=== PATIENT | male | born 1965 | race Caucasian/White ===

== ENCOUNTER 2020-05-22 12:07 | Emergency (ER) | payer OTHER ==
[~2020-05-22] VITALS: Ht 180.3 cm; Wt 83.9 kg
--- NOTE | 2020-05-22 12:20 | NUR ---
PT STATED HE HAS NOT HAD A BM IN 1 WEEK. PT STATES HE TRIED MAG CITRATE, MIRALAX AND SUPPOSITORIES. PT ALSO STATES THAT URINATION IS DIFFICULT NOW D/T CONSTIPATION.
--- NOTE | 2020-05-22 12:27 | NUR ---
MD AT BEDSIDE WITH PATIENT AT THIS TIME
[2020-05-22] MEDS ORDERED: NA PHOS,M-B/NA PHOS,DI-BA 1 EA ENEMA RC ONE ×2 (12:30→12:59)
[2020-05-22] MEDS ORDERED: MAGNESIUM CITRATE 296 ML BOTTLE PO ONE (12:30)
--- NOTE | 2020-05-22 12:52 | NUR ---
PT TAKEN TO CT BY B[employer]ING AND FINANCE INSTRUCTOR
[2020-05-22 12:54] LABS: BASOPHILS # (AUTO) 0.1 /CMM (0.0-0.2); BASOPHILS % (AUTO) 0.9 % (0.0-2.0); EOSINOPHILS % (AUTO) 1.4 % (0.0-6.0); HEMATOCRIT 36 % (39-51); LYMPHOCYTES % (AUTO) 14.1 % (20.0-44.0); MEAN CORPUSCULAR HGB CONC 33 g/dl (31.0-36.0); MEAN CORPUSCULAR VOLUME 82 fL (80-96); MONOCYTES # (AUTO) 0.4 /CMM (0.1-1.30); MONOCYTES % (AUTO) 6.3 % (2.0-12.0); NEUTROPHILS # (AUTO) 5.5 /CMM (1.8-8.9); NEUTROPHILS % (AUTO) 77.3 % (43.0-81.0); PLATELET COUNT (AUTO) 249 /CMM (150-450); RED BLOOD CELL COUNT(AUTO) 4.39 MIL/uL (4.5-6.0); WHITE BLOOD COUNT (AUTO) 7.1 K/uL (4.3-11.0)
[2020-05-22] MEDS ORDERED: MAGNESIUM CITRATE 296 ML BOTTLE ONE (13:00)
[2020-05-22 13:03] LABS: CALCIUM, SERUM 9.3 mg/dL (8.5-10.1); CREATININE 1.6 mg/dL (0.6-1.3); POTASSIUM 4.3 mmol/L (3.5-5.1)
[2020-05-22 13:09] LABS: ALBUMIN 3.8 g/dL (3.4-5.0); BILIRUBIN,DIRECT 0.2 mg/dL (0.0-0.2); BILIRUBIN,TOTAL 0.8 mg/dL (0.2-1.0); TOTAL PROTEIN, SERUM 7.1 g/dL (6.4-8.2)
--- NOTE | 2020-05-22 13:12 | NUR ---
BLADDER SCAN DONE, 284ML RESIDUAL NOTED. NOTIFIED. NO STRAIGHT CATH NEEDED AT THIS TIME
--- NOTE | 2020-05-22 13:25 | NUR ---
FEETS ENEMA ADMINISTERED WITHOUT DIFFICULTY. PT ADVISED TO LAY ON LEFT SIDE FOR LONG HE CAN HOLD IT THEN TRY TO HAVE A BM WHEN HE CAN'T HOLD IT ANY LONGER. PT STATED UNDERSTANDING. MAG CITRATE ADMINISTRATION WAITING TO SEE REPORT FROM ABD CT.
--- NOTE | 2020-05-22 13:36 | NUR ---
NO RESULTS FROM ENEMA OF THIS TIME. MD NOTIFIED.
[2020-05-22] MEDS ORDERED: LIDOCAINE 2% JEL 5 ML TUBE ONE (13:42)
[2020-05-22] MEDS ORDERED: LIDOCAINE VISCOUS 2% UD 15 ML UDC ONE (13:44)
--- NOTE | 2020-05-22 13:55 | NUR ---
MANUAL DISIMPACTION DONE BY RN USING VISCUS LIDOCAINE RECALLY. 3 LARGE HARD STOOL BALLS RETURNED, A LARGE AMOUNT OF SOFT STOOL RETURNED FOLLOWING. PT STATED RELIEF. MD NOTIFIED. NO NEED FOR MAG CITRATE. PT ADVISED TO SIT ON TOILET AND TRY TO GET THE REST OF THE STOOL OUT.
[2020-05-22] MEDS ORDERED: LIDOCAINE VISCOUS 2% UD 15 ML UDC MM ONE (14:00)
--- NOTE | 2020-05-22 14:28 | NUR ---
Patient discharged to home in stable condition. Written and verbal after care instructions given. Patient verbalizes understanding of instruction. IV removed. Catheter intact and site benign. Pressure and 4x4 applied to site. No bleeding noted.
[2020-05-22 14:29] VITALS: BP 118/78
== END 2020-05-22 14:30 | disposition home or self-care (01) ==
LOC: ER 12:15
DX: K59.00 Constipation, unspecified (principal); E11.9 Type 2 diabetes mellitus without complications
CPT/HCPCS: 80048-TC; 80076-TC; 83690-TC; 85025-TC

== ENCOUNTER 2021-10-24 05:09 | Emergency (ER) | payer OTHER ==
[~2021-10-24] VITALS: Ht 175.3 cm; Wt 79.4 kg
--- NOTE | 2021-10-24 05:23 | NUR ---
PATIENT BIBRA FROM HOME C/O HEADACHE AND NAUSEA X6 WEEKS, WITH BLOOD PRESSURE 210/108. PATIENT ALERT AND ORIENTED X3. PATIENT IS LEGALLY BLIND WITH NON LABORED BREATHING. PATIENT PLACED ON A MONITOR.
[2021-10-24] MEDS ORDERED: hydrALAZINE HCL IV 20 MG VIAL ONE ×2 (05:25→06:36)
[2021-10-24] MEDS: hydrALAZINE HCL IV 20 MG VIAL IV ONE ×2 (05:26→06:53)
--- NOTE | 2021-10-24 05:35 | NUR ---
lab at bedside
--- NOTE | 2021-10-24 05:41 | NUR ---
xray at bedside
[2021-10-24 05:43] LABS: BASOPHILS # (AUTO) 0.1 K/uL (0.0-0.2); BASOPHILS % (AUTO) 1.2 % (0.0-2.0); EOSINOPHILS % (AUTO) 2.8 % (0.0-6.0); HEMATOCRIT 32 % (39-51); HEMOGLOBIN 10.6 g/dL (13.5-17.5); LYMPHOCYTES # (AUTO) 0.9 K/uL (0.8-4.8); LYMPHOCYTES % (AUTO) 12.9 % (20.0-44.0); MEAN CORPUSCULAR HGB CONC 34 g/dl (31.0-36.0); MEAN CORPUSCULAR VOLUME 82 fL (80-96); MONOCYTES # (AUTO) 0.3 K/uL (0.1-1.30); NEUTROPHILS # (AUTO) 5.3 K/uL (1.8-8.9); NEUTROPHILS % (AUTO) 78.1 % (43.0-81.0); PLATELET COUNT (AUTO) 283 K/uL (150-450); RED BLOOD CELL COUNT(AUTO) 3.84 MIL/uL (4.5-6.0); WHITE BLOOD COUNT (AUTO) 6.8 K/uL (4.3-11.0)
[2021-10-24 06:00] LABS: ALANINE AMINOTRANSFERASE 28 U/L (12-78); ALBUMIN 3.3 g/dL (3.4-5.0); ALKALINE PHOSPHATASE 73 U/L (46-116); ASPARTATE AMINOTRANSFERASE 16 U/L (15-37); BILIRUBIN,DIRECT 0.1 mg/dL (0.0-0.2); BILIRUBIN,TOTAL 0.6 mg/dL (0.2-1.0); CALCIUM, SERUM 8.8 mg/dL (8.5-10.1); CARBON DIOXIDE 27 mmol/L (21-32); CHLORIDE 102 mmol/L (98-107); CREATININE 1.6 mg/dL (0.6-1.3); GLUCOSE 290 mg/dL (74-106); POTASSIUM 4.5 mmol/L (3.5-5.1); SODIUM SERUM 138 mmol/L (136-145); TOTAL PROTEIN, SERUM 6.6 g/dL (6.4-8.2); UREA NITROGEN, BLOOD 31 mg/dL (7-18)
[2021-10-24] MEDS ORDERED: KETOROLAC TROMETHAMINE INJ 30 MG/ML VIAL ONE (06:37)
[2021-10-24] MEDS ORDERED: ACETAMINOPHEN ES 500 MG TABLET ONE (06:37)
[2021-10-24] MEDS ORDERED: LORAZEPAM INJ 2 MG/ML VIAL ONE ×2 (06:38→06:42)
[2021-10-24] MEDS: LORAZEPAM INJ 2 MG/ML VIAL IV ONE (06:53)
[2021-10-24] MEDS: KETOROLAC TROMETHAMINE INJ 30 MG/ML VIAL IV ONE (06:53)
[2021-10-24] MEDS: ACETAMINOPHEN ES 500 MG TABLET PO ONE (06:53)
--- NOTE | 2021-10-24 07:11 | NUR ---
gave report to semaj ugarte for marisa
--- NOTE | 2021-10-24 07:15 | NUR ---
RECEIVED REPORT FROM PREM SHEEHAN FOR DUSTIN. PT ASLEEP ON BED EASILY AROUSABLE, NOTED ELEVATED BP OF 204/98 REPORTED TO . KEPT RESTED AND COMFORTABLE. WILL CONTINUE TO MONITOR.
[2021-10-24] MEDS: IV NS 0.9% 1,000 ML BAG IV ONE (08:27)
[2021-10-24] MEDS ORDERED: LORA-259 PO (09:47)
[2021-10-24 09:50] VITALS: BP 133/84
--- NOTE | 2021-10-24 09:50 | NUR ---
IV removed. Catheter intact and site benign. Pressure and 4x4 applied to site. No bleeding noted. Patient discharged to home in stable condition. Written and verbal after care instructions given. Patient verbalizes understanding of instruction.
== END 2021-10-24 09:51 | disposition home or self-care (01) ==
LOC: ER 05:11
DX: I12.9 Hypertensive chronic kidney disease with stage 1 through stage 4 chronic kidney disease, or unspecified chronic kidney disease (principal); E11.22 Type 2 diabetes mellitus with diabetic chronic kidney disease; N18.9 Chronic kidney disease, unspecified; R11.0 Nausea; E11.65 Type 2 diabetes mellitus with hyperglycemia; Z79.899 Other long term (current) drug therapy
CPT/HCPCS: 36415; 70450; 71045; 80048; 80076; 84484; 85025; 85730; 93005; 96361; 96374; 96375; 96376; 99285; J0360 ×2; J1885; J2060 ×2; J7030